=== PATIENT | female | born 1995 | race Caucasian/White ===

== ENCOUNTER 2022-06-08 07:20 | Inpatient (IN) | payer MEDICAID ==
[~2022-06-08] VITALS: Ht 160 cm; Wt 72.6 kg
[2022-06-08] MEDS ORDERED: OXYTOCIN 30 UNITS/500ML NS PMX 500 ML IV SCH (07:45)
[2022-06-08] MEDS ORDERED: METHYLERGONOVINE MALEATE 0.2 MG/ML IM PRN (07:45)
[2022-06-08] MEDS ORDERED: CARBOPROST TROMETHAMINE 250 MCG/ML AMPUL IM PRN (07:45)
[2022-06-08 10:25] LABS: BASOPHILS % 0.7 % (0.0-2.0); EOSINOPHILS % 0.3 % (0.0-5.0); HEMATOCRIT. 25.1 % (36.0-48.0); LYMPHOCYTES % 25.9 % (20.0-50.0); MEAN CORPUSCULAR HEMOGLOBIN 24.1 pg (28.0-32.0); MEAN PLATELET VOLUME 8.2 fl (7.4-10.4); MONOCYTES % 4.4 % (2.0-8.0); NEUTROPHILS % 68.7 % (40.0-76.0); PLATELET 308 x1000/uL (130-400); RED BLOOD CELL COUNT 3.31 mill/uL (4.2-5.4); RED CELL DISTRIBUTION WIDTH 17.6 % (11.6-14.6)
[2022-06-08 10:33] LABS: CLARITY URINE CLEAR (CLEAR); COLOR URINE YELLOW (YELLOW); KETONES URINE NEGATIVE (NEGATIVE); LEUKOCYTE ESTERASE URINE NEGATIVE (NEGATIVE); NITRITE URINE NEGATIVE (NEGATIVE); OCCULT BLOOD URINE NEGATIVE (NEGATIVE); PROTEIN URINE NEGATIVE (NEGATIVE); SPECIFIC GRAVITY URINE 1.013 (1.005-1.030)
[2022-06-08 10:50] LABS: CHLORIDE 112 mEq/L (98-107)
[2022-06-08 10:55] LABS: *AMPHETAMINES SCREEN URINE NEGATIVE (NEGATIVE); *BARBITURATES SCREEN URINE NEGATIVE (NEGATIVE); *BENZODIAZEPINES SCREEN URINE NEGATIVE (NEGATIVE); *COCAINE SCREEN URINE NEGATIVE (NEGATIVE); CANNABINOID URINE SCREEN NEGATIVE (NEGATIVE); METHADONE URINE SCREEN NEGATIVE (NEGATIVE); OPIATES URINE SCREEN NEGATIVE (NEGATIVE); PHENCYCLIDINE URINE SCREEN NEGATIVE (NEGATIVE)
[2022-06-08] MEDS: LACTATED RINGERS 1,000 ML IV SCH ×3 (11:00→23:56)
[2022-06-08] MEDS ORDERED: CEFAZOLIN SODIUM 1000MG/VIAL ONE (11:42)
[2022-06-08] MEDS ORDERED: MORPHINE SULFATE/PF 1MG/ML 10ML AMP ONE (11:42)
[2022-06-08] MEDS ORDERED: EPHEDRINE SULFATE 50MG/ML VIAL ONE (11:42)
[2022-06-08] MEDS ORDERED: OXYTOCIN 10 UNITS/ML 1ML ONE (11:42)
[2022-06-08] MEDS ORDERED: ONDANSETRON HCL 4MG/2ML INJ ONE (11:42)
[2022-06-08] MEDS ORDERED: DIPHENHYDRAMINE 50MG/ML VIAL ONE (11:42)
[2022-06-08] MEDS ORDERED: FENTANYL CITRATE/PF 50MCG/ML 2ML VIAL ONE (11:43)
[2022-06-08] MEDS ORDERED: PHENYLEPHRINE HCL 10 MG/ML 1ML (IV VIAL) IV ONE (11:43)
[2022-06-08] MEDS ORDERED: SODIUM CHLORIDE 0.9% 10ML VIAL ONE (11:43)
[2022-06-08 12:10] LABS: INR 0.9; PARTIAL THROMBOPLASTIN TIME 25.4 sec (23.4-31.0); PROTHROMBIN TIME 9.6 sec (9.6-11.0)
[2022-06-08] MEDS ORDERED: KETOROLAC 60MG/2ML VIAL IM ONE (15:07)
[2022-06-08] MEDS ORDERED: NALOXONE HCL 0.4 MG/ML 1ML VIAL IV PRN (15:15)
[2022-06-08] MEDS ORDERED: BUTORPHANOL TARTRATE 2 MG/ML VIAL IV PRN (15:15)
[2022-06-08] MEDS ORDERED: DIPHENHYDRAMINE 50MG/ML VIAL IV PRN (15:15)
[2022-06-08] MEDS: KETOROLAC 30MG/ML VIAL IV SCH ×2 (15:15→21:15)
[2022-06-08] MEDS ORDERED: IBUPROFEN 400MG TABLET PO PRN (15:30)
[2022-06-08] MEDS ORDERED: HYDROMORPHONE HCL/PF 2MG/ML CPJ IM PRN (15:30)
[2022-06-08] MEDS ORDERED: DIPHENHYDRAMINE 25MG CAPSULE PO PRN (15:30)
[2022-06-08] MEDS ORDERED: BISACODYL 10MG SUPP PR PRN (15:30)
[2022-06-08] MEDS ORDERED: NALOXONE HCL 0.4MG/ML VIAL IV PRN (15:45)
[2022-06-08 18:05] VITALS: BP 122/80
[2022-06-08 19:37] LABS: HEPATITIS B SURFACE ANTIGEN NEGATIVE
[2022-06-08 20:00] VITALS: BP 115/67
[2022-06-09] VITALS: BP 111/59
[2022-06-09] MEDS ORDERED: MEASLES,MUMPS&RUBELLA VACCINE 1 VIAL SUBCUT ONE (01:00)
[2022-06-09 04:00] VITALS: BP 114/76
[2022-06-09 08:08] LABS: HIV SCREEN 4G Non Reactive (Non Reactive)
[2022-06-09 08:30] VITALS: BP 113/72
[2022-06-09] MEDS: PRENATAL VIT/FE FUMARATE/FA TABLET PO SCH (08:46)
[2022-06-09 10:19] LABS: BASOPHILS % 0.7 % (0.0-2.0); EOSINOPHILS % 0.5 % (0.0-5.0); HEMATOCRIT. 23.5 % (36.0-48.0); HEMOGLOBIN. 7.5 g/dL (12.0-16.0); LYMPHOCYTES % 22.4 % (20.0-50.0); MEAN CORPUSCULAR HEMOGLOBIN 24.2 pg (28.0-32.0); MEAN CORPUSCULAR VOLUME 75.6 fL (81.0-99.0); MEAN PLATELET VOLUME 8.3 fl (7.4-10.4); MONOCYTES % 5.1 % (2.0-8.0); NEUTROPHILS % 71.3 % (40.0-76.0); PLATELET 288 x1000/uL (130-400); RED BLOOD CELL COUNT 3.11 mill/uL (4.2-5.4); RED CELL DISTRIBUTION WIDTH 18.1 % (11.6-14.6)
[2022-06-09] MEDS: IBUPROFEN 800MG TABLET PO PRN ×2 (12:58→21:21)
[2022-06-09 15:23] VITALS: BP 101/56
[2022-06-09] MEDS: FERROUS SULFATE 325MG TABLET PO SCH (19:37)
[2022-06-09 22:00] VITALS: BP 120/87
[2022-06-10] MEDS ORDERED: IBUP-2030 PO (07:51)
[2022-06-10 08:00] VITALS: BP 119/74
[2022-06-10] MEDS: FERROUS SULFATE 325MG TABLET PO SCH (09:31)
[2022-06-10] MEDS: PRENATAL VIT/FE FUMARATE/FA TABLET PO SCH (09:31)
[2022-06-10 09:32] VITALS: BP 120/87
[2022-06-10] MEDS: IBUPROFEN 800MG TABLET PO PRN (09:32)
== END 2022-06-10 13:10 | disposition home or self-care (01) | DRG 540 ==
LOC: 8 EST LDRP 07:20 → OBSVTOIN 07:20 → 8EST 17:50
PROVIDERS: ADMIT Obstetrics & Gynecology; ATTEND Obstetrics & Gynecology
PROC: 10D00Z1 Extraction of Products of Conception, Low, Open Approach (ICD-10-PCS; principal; 2022-06-08)
DX: O41.03X0 Oligohydramnios, third trimester, not applicable or unspecified (principal); K83.1 Obstruction of bile duct; O26.62 Liver and biliary tract disorders in childbirth; O34.219 Maternal care for unspecified type scar from previous cesarean delivery; Z20.822 Contact with and (suspected) exposure to COVID-19; O69.81X0 Labor and delivery complicated by cord around neck, without compression, not applicable or unspecified; Z3A.37 37 weeks gestation of pregnancy; Z37.0 Single live birth
CPT/HCPCS: 36415; 76805; 76818; 80053; 80305; 81003; 85025; 86592; 86762; 86850; 86900; 86920; 87340; 87389; 87426; 88307; 90707; 99281; J0690; J1200; J1885; J2274; J2370; J2405; J3010; J3490; J7120; A4315; J2590